=== PATIENT | male | born 1995 | race Caucasian/White ===

== ENCOUNTER 2024-11-20 18:05 | Inpatient (IN) | payer BC ==
[~2024-11-20] VITALS: Ht 195.6 cm; Wt 83.3 kg
--- NOTE | 2024-11-20 18:58 | RADIOLOGY REPORT ---
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 Comparison: None FINDINGS/IMPRESSION: There is no evidence of acute fracture or dislocation. The visualized joint space is well maintained. The alignment is anatomical. There is no radiopaque foreign body. Soft tissue edema with subcutaneous emphysema of the palmar soft tissues of the 2nd digit extending i n between the 2nd and 3rd digits soft tissues.
[2024-11-20] MEDS: piperacillin/tazo 3.375gm/50ml 50 ML IV STA (19:11)
[2024-11-20 19:27] LABS: MEAN PLATELET VOLUME 7.5 FL (7.4-10.4); RED CELL DISTRIBUTION WIDTH 13.4 % (11.5-14.5)
[2024-11-20 19:41] LABS: CREATININE 1.01 MG/DL (0.60-1.10); TOTAL CARBON DIOXIDE 26.1 MMOL/L (24-32); eCRCL 125 ML/MIN; eGFR 86 ML/MIN
[2024-11-20] MEDS: vancomycin/NS 1 GM ADD-VANTAGE 250 ML X 1 DOSE IV ONE (20:50)
[2024-11-20] MEDS ORDERED: mag hydrox/Alum hydrox/simeth 30ml oral suspension PO PRN (21:20)
[2024-11-20] MEDS ORDERED: ondansetron/PF 4mg/2ml inj IV PRN (21:20)
[2024-11-20] MEDS ORDERED: magnesium sulf-water 4G/100mL 100 ML IV PRN (21:20)
[2024-11-20] MEDS ORDERED: potassium Cl 20 mEq SR tablet PO PRN ×2 (21:20)
[2024-11-20] MEDS ORDERED: magnesium hydroxide 30ml (MOM) UD suspension PO PRN (21:20)
[2024-11-20] MEDS ORDERED: magnesium Cl slow-release 64mg tablet PO PRN (21:20)
[2024-11-20] MEDS ORDERED: potassium Cl 40MEQ/1/2NS 520ml 520 ML IV PRN (21:20)
[2024-11-20] MEDS ORDERED: HYDROcodone/acetaminophen 5mg/325mg tablet PO PRN (21:20)
[2024-11-20] MEDS ORDERED: magnesium sulf-water 2g/50mL 50 ML IV PRN (21:20)
[2024-11-20] MEDS: normal saline 1000ml 1,000 ML IV SCH (21:46)
[2024-11-20 22:00] VITALS: BP 124/72; PULSE 65; RESP 14; TEMP 97.6; O2SAT 100
--- NOTE | 2024-11-20 22:00 | Physician Documentation ---
History of Present Illness ~ Chief Complaint: Hand pain Stated Complaint: LT HAND PAIN Time Seen by MD: 18:19 HPI Patient is seen today with complaints of pain of his left hand. Patient states he was using a washery boss yesterday around 3:00 p.m. and accidentally hit his left hand in the palmar aspect at the level of the proximal phalanx of the left index finger. Patient states his finger was immediately very swollen and states that swelling has decreased however he has now had increased pain and swelling of his left hand and left index finger since yesterday. Patient states he has pain all along the Flexeril aspect of his left index finger distally and proximally to his wrist. He has pain with passive extension of the left index finger as well as swelling. He has no other concern or complaint at this time and denies any current fevers or chills. Medication Reconciliation Allergies: Coded Allergies: No Known Allergies (Unverified , 11/20/24) Past Medical History Smoking Status: Current every day smoker Review of Systems Constitutional: Denies: chills, fever, weakness Eyes: Denies: pain, blurred vision ENT: Denies: ear pain, nose pain, throat pain, mouth pain Respiratory: Denies: cough, shortness of breath Cardiovascular: Denies: chest pain, palpitations Gastrointestinal: Denies: abdominal pain, nausea, vomiting Genitourinary: Denies: burning, dysuria Male Genitalia: Denies: penile discharge, testicular pain Neurological: Denies: headache, dizziness Musculoskeletal: Denies: pain, swelling Integumentary: Denies: rash, lesions Allergic/Immunologic: Denies: hives, itching Hematologic/Lymphatic: Denies: no symptoms reported Psychiatric: Denies: depression, anxiety Physical Exam Vital Signs: Temperature: 98.6, Source: Oral, Heart Rate: 66, Respiratory Rate: 16, BP: 113/55, Pulse Oximetry: 99, Weight: 83.350 Oxygen Flow Rate: 0 Physical Exam General: Awake and Alert, no acute distress. HEENT: Conjunctiva pink, Sclera clear, Mucus Membranes moist. Neck: Supple without masses and tenderness. Resp: Unlabored. Lungs clear to auscultation bilaterally. Heart: Regular Rate and rhythm, normal S1 and S2 without murmur, rub or gallop. Musculoskeletal: Patient on exam does have significant tenderness to palpation along the Flexeril tendon distally and proximally of the left index finger. Patient has swelling of the left index finger as well as erythema and warmth and swelling of the dorsum of the left hand. Patient has not for open wound located in the Flexeril aspect of the proximal phalanx of the left index finger with some drainage. Extremities: No cyanosis,clubbing or edema. Skin: Warm and Dry. Progress Results/Orders Results/Orders Orders - ZACH BALLESTEROS R PAC Finger(S) (11/20/24 18:35) Electrocardiogram (11/20/24 19:09) Culture Blood (11/20/24 19:09) Piperacillin/Tazo 3.375gm/50ml (Zosyn 3. (11/20/24 19:11) Page Hospitalist (11/20/24 19:13) Fill Out Med Reconciliation (11/20/24 19:13) Completed Orders - ZACH BALLESTEROS PAC Finger(S) (11/20/24 18:35) Cbc/Diff (11/20/24 18:24) BMP (11/20/24 18:24) MG (11/20/24 19:09) Procalcitonin (11/20/24 19:09) Lacticsepsis (11/20/24 19:09) C-Reactive Protein (11/20/24 19:09) ESR (11/20/24 19:09) Vancomycin*Pharmacy To Dose* (Vancomycin (11/20/24 19:11) Vancomycin/Ns 1 Gm Add-[place] (Vancomyc (11/20/24 19:25) Medications Received in ER Medications (Trade) Dose Ordered Sig/Danae Route PRN Reason Start Time Stop Time Status Last Admin Dose Admin Vancomycin HCl 250 ml @ 166 mls/hr ONCE ONCE IV 11/20/24 19:25 11/20/24 20:55 DC 11/20/24 20:50 166 MLS/HR Vital Signs 11/20/24 18:13 Temp 98.6 Pulse 78 Resp 16 B/P (MAP) 111/66 Pulse Ox 98 O2 Flow Rate 0 Laboratory Tests Test 11/20/24 19:15 White Blood Count 8.8 Red Blood Count 4.42 L Hemoglobin 14.2 Hematocrit 41.4 L Mean Corpuscular Volume 93.6 Mean Corpuscular Hemoglobin 32.1 H Mean Corpuscular Hemoglobin Concent 34.3 Red Cell Distribution Width 13.4 Platelet Count 266 Mean Platelet Volume 7.5 Neutrophils (%) (Auto) 47.8 Lymphocytes (%) (Auto) 35.6 Monocytes (%) (Auto) 8.1 Eosinophils (%) (Auto) 7.5 H Basophils (%) (Auto) 1.0 Neutrophils # (Auto) 4.2 Lymphocytes # (Auto) 3.1 Monocytes # (Auto) 0.7 Eosinophils # (Auto) 0.7 Basophils # (Auto) 0.1 CBC Comment Erythrocyte Sedimentation Rate 2 Sodium Level 141 Potassium Level 4.0 Chloride Level 104 Carbon Dioxide Level 26.1 Anion Gap 11 Blood Urea Nitrogen 14 Creatinine 1.01 Estimated GFR/1.73 m2 86 BUN/Creatinine Ratio 13.9 Glucose Level 82 Lactic Acid Level 1.0 Calcium Level 8.4 L Magnesium Level 2.2 C-Reactive Protein < 0.05 Albumin 4.3 Procalcitonin < 0.05 Chemistry Comments Microbiology Date/Time Source Procedure Growth Status 11/20/24 19:25 Blood Arm Left Blood Culture - Preliminary NEGATIVE (LESS THAN 24 HOURS) Resulted EKG/XRAY/CT/US/VASC/MRI Bone/Soft Tissue X-Ray (Ext.) : Additional Comment X-ray of the left hand interpreted by myself today shows no sign of acute fracture, bones in anatomic alignment, Soft tissue edema with subcutaneous emphysema of the palmar soft tissues of the 2nd digit extending in between the 2nd and 3rd digits soft tissues. 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 Comparison: None FINDINGS/IMPRESSION: There is no evidence of acute fracture or dislocation. The visualized joint space is well maintained. The alignment is anatomical. There is no radiopaque foreign body. Soft tissue edema with subcutaneous emphysema of the palmar soft tissues of the 2nd digit extending in between the 2nd and 3rd digits soft tissues. Electronically Signed by:GABBY CRAWFORD DO Date & Time: 11/20/241854 Dictated by: GABBY CRAWFORD DO Dictation date and time: 11/20/241831 Primary Care Provider: NO PRIMARY CARE PROVIDER cc: ZACH BALLESTEROS PAC ~ Medical Decision Making Findings Patient is seen today with complaints of pain of his left hand. Patient states he was using a washery boss yesterday around 3:00 p.m. and accidentally hit his left hand in the palmar aspect at the level of the proximal phalanx of the left index finger. Patient states his finger was immediately very swollen and states that swelling has decreased however he has now had increased pain and swelling of his left hand and left index finger since yesterday. Patient states he has pain all along the Flexeril aspect of his left index finger distally and proximally to his wrist. He has pain with passive extension of the left index finger as well as swelling. He has no other concern or complaint at this time and denies any current fevers or chills. I did consult with Dr. Espinal the orthopedist or orthopedic surgeon on-call who did evaluate the patient and advised patient be started on IV antibiotics and admitted to the hospital for further treatment and eval. Patient will be made NPO at midnight. Hospitalist was consulted. Departure Disposition: ADMITTED INPATIENT Admitted to Inpatient Unit: to hospitalist Admission Level of Care: Med/Surg with Tele Impression: Primary Impression: Infectious tenosynovitis Condition: Stable Additional Instructions: I did consult with Dr. Espinal the orthopedist or orthopedic surgeon on-call who did evaluate the patient and advised patient be started on IV antibiotics and admitted to the hospital for further treatment and eval. Patient will be made NPO at midnight. Hospitalist was consulted. Referrals: NO PRIMARY CARE PROVIDER (PCP) Signature Scribe Signature: No scribe Attestation: No scribe [facility] Nov 20, 2024 22:00
--- NOTE | 2024-11-20 23:05 | HISTORY AND PHYSICAL-Residence ---
History & Physical Providers to CC Resident Creating Document: JAZMIN WILSON, RES CC: JILLIAN ALVARADO MD ~ History of Present Illness Reason for Admit\Complaint: Injury, pain and swelling History of Present Illness A 29-year-old male with no past medical history presented to the ED after sustaining an injury to the left index finger. Patient was pressure washing his chronic query when he hit his hand at about 3:00 p.m. yesterday and sustained an injury. There was gradual worsening of redness warmth and swelling over one day that did not improve with eyes. Swelling his progress to the dorsal side of the hand. Patient denies fever, chills or rigors. 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 Does not have a primary care provider ROS ROS All other systems reviewed in full and negative except for the pertinent positives mentioned in the HPI Constitutional: Denies: chills, fever, weakness Eyes: Denies: pain, blurred vision ENT: Denies: ear pain, nose pain, throat pain, mouth pain Respiratory: Denies: cough, shortness of breath Cardiovascular: Denies: chest pain, palpitations Gastrointestinal: Denies: abdominal pain, nausea, vomiting Genitourinary: Denies: burning, dysuria Male Genitalia: Denies: penile discharge, testicular pain Neurological: Denies: headache, dizziness Musculoskeletal: Denies: pain, swelling Integumentary: Denies: rash, lesions Allergic/Immunologic: Denies: hives, itching Hematologic/Lymphatic: Denies: no symptoms reported Psychiatric: Denies: depression, anxiety Exam Vitals: Vital Signs Date Time Temp Pulse Resp B/P (MAP) Pulse Ox O2 Delivery O2 Flow Rate FiO2 11/20/24 21:34 98.6 66 113/55 (74) 99 0 11/20/24 18:13 16 General: General: Alert, awake, oriented, not in acute distress HEENT: PERRLA, no icterus, pallor, lymphadenopathy, carotid bruit Respiratory system: Bilateral vesicular breath sounds heard, no adventitious breath sounds CVS: S1-S2 heard, no murmurs/rubs/gallop GI: Soft, nontender, no organomegaly, no guarding/rigidity, bowel sounds present Neuro: No focal neurological deficits present Extremities: Erythema warmth, tenderness and swelling of the left index finger and the dorsal side of the hand. There is a small laceration at the base of the left index finger Skin: Warm and dry Diagnostic Data Last Recorded Lab Results: 11/21/2441611/21/24416 Advance Care Planning Advanced Care plannin - 30 Minutes (I spent 20 minutes discussing various resuscitative measures and the patient decided to be full code) Additional Plan Assessment: 29-year-old male with a past medical history presented to the ED after sustaining an injury to the left index finger. On further imaging patient was found to have subcutaneous emphysema of the former soft tissue of the 2nd digit. Dr. Espinal was consulted who would replaced with the patient tomorrow in the morning. Patient is admitted for the evaluation management of possible tenosynovitis. Plan: Lft Second proximal phalanx injury Cellulitis Possible tenosynovitis Finger x-ray: Soft tissue edema with subcutaneous emphysema of the palmar soft tissues of the 2nd digit extending in between the 2nd and 3rd digits soft tissues. Normal WBC count, C-reactive protein and procalcitonin Started on IV vancomycin pharmacy to dose and IV Zosyn q.12h Continue IV fluids at 100 cc/hour NPO after midnight Awaiting recommendations from Dr. Espinal (orthopedic) Follow up with CT upper extremity Code status: Full code Diet: NPO after midnight DVT prophylaxis: SCD Disposition: Admit to surgical unit, follow up with CT upper extremity and awaiting recommendations from Dr. Teddy Wilson MD Internal Medicine, PGY 2 Date of Service: Nov 20, 2024 Billing Provider: JILLIAN ALVARADO MD Common Visit Codes: 33985-[id number] INP/OBS CARE (HIGH) Assessment/Plan Assessment Evaluated the patient with the help of residents. Discussed the case with them. Reviewed notes by Dr.Suddapalli STEPHENSON Agree with her assessment and plans I also reviewed the patient's records myself. Will continue the current management plans INCLUDING ORTHOPEDIC REFERRAL JAZMIN WILSON, RES Nov 20, 2024 23:05 JILLIAN ALVARADO MD Nov 21, 2024 11:09
[2024-11-21] MEDS: vancomycin/NS 1 GM ADD-VANTAGE 250 ML IV SCH ×2 (02:30→11:31)
[2024-11-21] MEDS: piperacillin/tazo 3.375gm/50ml 50 ML IV SCH (04:14)
[2024-11-21 04:32] LABS: MEAN PLATELET VOLUME 7.6 FL (7.4-10.4); RED CELL DISTRIBUTION WIDTH 13.0 % (11.5-14.5)
[2024-11-21 04:41] LABS: CREATININE 0.92 MG/DL (0.60-1.10); TOTAL CARBON DIOXIDE 28.2 MMOL/L (24-32); eCRCL 137 ML/MIN; eGFR > 90 ML/MIN
[2024-11-21 06:00] VITALS: BP 102/48; PULSE 66; RESP 12; TEMP 97.4; O2SAT 100
[2024-11-21 08:00] VITALS: RESP 12; O2SAT 100
[2024-11-21] MEDS: K and/or MAG REPLACEMENT MC SCH (08:00)
[2024-11-21] MEDS: docusate sod 100mg capsule PO SCH (08:00)
[2024-11-21 10:00] VITALS: BP 124/69; PULSE 62; RESP 18; TEMP 97.4; O2SAT 100
--- NOTE | 2024-11-21 10:44 | CONSULTATION REPORT ---
History of Present Illness Providers to CC ~ Reason for Admit\Admit Dx: Injury, pain and swelling History of Present Illness 29-year-old with a suffered an injury to left hand. 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 He presented to the emergency room the very next day because of increasing swelling and pain to his left hand. I was consulted to see this patient in the emergency room on 11/20/2024. Examination at that time revealed some diffuse swelling of the dorsum of his hands with some erythema. He had a puncture wound at the webspace between the 2nd and 3rd finger that was not actively draining. He had mild swelling to the finger the 2nd finger involving the distal and distal to the metacarpophalangeal crease. Patient was denying any numbness to his finger. The finger on exam revealed good capillary refill and he had active flexion and extension to his finger he lacks the last inch and a half of fingertip to palm with composite flexion because of swelling. Exam revealed intact extensor function as well as flexor tendon function without significant pain to passive range of motion. 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 No signs of septic or flexor tendon tenosynovitis on exam. Plan: The patient was admitted placed on intravenous antibiotics and we will require daily observation and examination to monitor progress significant potential for developing septic tenosynovitis because of the force required to cause this type of injury. Review of symptoms persist CT scan of the hand would be appropriate to see if there is any residual or potential development of abscess formation. Hospitalist was requested to admit this patient follow up for a medical standpoint which is much appreciated Thank you for the consultation Allergies: Coded Allergies: No Known Allergies (Unverified , 11/20/24) Physical Exam Last Vital Signs Recorded: Temperature: 97.4, Source: Oral, Heart Rate: 66, Respiratory Rate: 12, BP: 102/48, Pulse Oximetry: 100, Weight: 83.350 Results Diagram Lab Result Diagram: 11/21/24 0417 11/21/24 0417 SANDRA VILLAVICENCIO MD Nov 21, 2024 10:44
[2024-11-21] MEDS ORDERED: AMOX-580 PO (12:10)
--- NOTE | 2024-11-21 12:14 | DISCHARGE SUMMARY-Residence ---
Discharge Summary Providers to CC Resident Creating Document: MALICK CLARK RES ~ Discharge Summary Admission Diagnosis: Phalynx Tenosynovitis Hospital Course DATE OF ADMISSION: 11/20/2024 DATE OF DISCHARGE: 11/21/2024 Discharge lab results Hemoglobin 13.7 WBCs 7.2 Platelet count 225 Sodium 140 Potassium 4.4 BUN 15 Creatinine 0.92 C-reactive protein< 0.05 Procalcitonin < 0.05 Left hand x-ray 11/20/2024: Soft tissue edema with subcutaneous emphysema of the palmar soft tissues of the 2nd digit extending in between the 2nd and 3rd digits soft tissues. Left hand CT 11/21/24: There is no fracture, dislocation, or focal osseous lesion. Moderate subcutaneous emphysema is present throughout the 2nd digit and at the proximal 3rd digit. Soft-tissue swelling is present at the distal 2nd digit. Discharge Diagnosis\Comment: Post trauma cellulitis Operations\Procedures: None Consultants: Dr Espinal Complications: None Condition on DC: Stable New Medications: Amox Tr/Potassium Clavulanate 875/125 MG (Augmentin 875/125 MG) 875 Mg-125 Mg Tablet 1 TAB PO BID for 7 Days, #14 TAB Discharge Summary: History of present illness A 29-year-old male with no past medical history presented to the ED after sustaining an injury to the left index finger. Patient was pressure washing his chronic query when he hit his hand at about 3:00 p.m. yesterday and sustained an injury. There was gradual worsening of redness warmth and swelling over one day that did not improve. Swelling his progress to the dorsal side of the hand was noted. Patient denies fever, chills or rigors. Hospital course This 29 year-old male patient with no past medical history was admitted for right hand cellulitis and concern for tenosynovitis. Patient's hand had significant erythema and edema, however it improved sooner than expected with IV antibiotics. The patient today has only mild pain, reports significant improvement of the previous symptoms. He is asking to be discharged today considering the almost complete improvement since yesterday and the possibility of p.o. antibiotics. Patient was also evaluated by Dr. Espinal who did not find any signs of septic or flexor tendon tenosynovitis on exam. The patient is stable to be discharged today. Discharge physical exam General: Alert, awake, oriented, not in acute distress HEENT: PERRLA, no icterus, pallor, lymphadenopathy, carotid bruit Respiratory system: Bilateral vesicular breath sounds heard, no adventitious breath sounds CVS: S1-S2 heard, no murmurs/rubs/gallop GI: Soft, nontender, no organomegaly, no guarding/rigidity, bowel sounds present Neuro: No focal neurological deficits present Extremities: Mild tenderness and swelling of the left index finger and the dorsal side of the hand. There is a small laceration at the base of the left index finger. No erythema or purulent discharge noted. Skin: Warm and dry Discharge medications Augmentin 875/125 mg twice a day for seven days Discharge course Follow-up with your primary care physician in one week Take Augmentin 875/125 mg twice a day for seven days Continue wound care Come back to the ED in case of worsening pain or redness, fever, purulent drainage or any concerning symptoms. *Problems/Diagnosis: (1) Cellulitis and abscess of hand Status: Acute Total Time Spent on D/C: > 30 Minutes Date of Service: Nov 21, 2024 Billing Provider: BARBI GONZALEZ MD Common Visit Codes: 39245-ENG/OBS DISCH DAY >30min MALICK CLARK, RES Nov 21, 2024 12:14 BARBI GONZALEZ MD Nov 21, 2024 18:51
--- NOTE | 2024-11-21 14:53 | RADIOLOGY REPORT ---
INDICATION: Tenosynovitis COMPARISON: None TECHNIQUE: CT of the left upper extremity was performed without contrast. Volume transverse images we re obtained and reconstructed in multiple planes using bone and soft tissue algorithms. CONTRAST: None Radiation Dose Information: CTDI volume is 14.4 mGy. Dose-length product is 465 mGy*cm FINDINGS: The alignment is normal. The joint spaces are normal. There is no fracture, dislocation, or focal osseous lesion. Moderate subcutaneous emphysema is present throughout the 2nd digit and at the proximal 3rd digit. So ft-tissue swelling is present at the distal 2nd digit. IMPRESSION: No acute fracture or dislocation. Nonemergent outpatient MRI can be obtained to further evaluate for tendon/ligamentous injury if clini cinthya indicated.
[2024-11-21] MEDS ORDERED: VANCOMYCIN LEVEL IV ONE (18:30)
== END 2024-11-21 13:55 | disposition home or self-care (01) | DRG 603 ==
LOC: ER 18:06 → ED HOLD 19:26 → SUR 3N 21:50
PROVIDERS: ADMIT Internal Medicine Critical Care Medicine; ATTEND Internal Medicine
DX: L03.114 Cellulitis of left upper limb (principal); F17.210 Nicotine dependence, cigarettes, uncomplicated; M65.142 Other infective (teno)synovitis, left hand; S69.82XA Other specified injuries of left wrist, hand and finger(s), initial encounter; X58.XXXA Exposure to other specified factors, initial encounter; Y93.89 Activity, other specified; Y92.89 Other specified places as the place of occurrence of the external cause; Y99.8 Other external cause status
CPT/HCPCS: 36415; 73140; 73200; 80048; 83605; 83735; 84132; 84145; 85025; 85651; 86140; 87040; 87081; 96365; 99285; G0378; J2543; J3373; J7030